=== PATIENT | male | born 1930 | race Caucasian/White ===

== ENCOUNTER 2019-01-18 08:34 | Emergency (ER) | payer MEDICARE ==
[~2019-01-18] VITALS: Ht 167.6 cm; Wt 72.6 kg
[2019-01-18 08:38] VITALS: BP_SYST 147
--- NOTE | 2019-01-18 08:40 | NUR ---
Patient to ER bed 3 to gown for evaluation. Side rails up. Report given to Latha OSHEA.
--- NOTE | 2019-01-18 08:50 | NUR ---
Patient arrived via [facility] from home, patient alert and oriented, lives with Gloria. Patient c/c of abdominal pain and no BM for 4 days. Patient states pain began upon waking this morning approximately 0730. Patient states he was discharged from [facility] last night. He states while he was admitted to [place] he had a G-tube placed. Patient has 16fr cordero catheter, clamped, to LUQ of abdomen. Dressing is dry and intact. Patient has 3 incisions with steri strip closures to RLQ, umbilicus, and at g-tube site. No active bleeding, drainage, warmth, or redness indicating infection. Patient states he had his formula for the first time through the tube last night, tolerated well. The G-tube was placed due to difficulty swallowing and tolerating oral intake. Patient has history of esophageal cancer. Will continue to follow up and monitor.
--- NOTE | 2019-01-18 08:55 | NUR ---
ER at bedside examining patient.
[2019-01-18] MEDS ORDERED: NACL 0.9% 1,000 ML IV ONE (08:59)
--- NOTE | 2019-01-18 09:22 | NUR ---
Patient blood drawn from PICC line, dual lumen. x2 lines flushed with saline and blood returned noted.
--- NOTE | 2019-01-18 09:40 | NUR ---
Patient returned from CT scan, patient placed on monitor. No compliants of pain at this time.
[2019-01-18 09:43] LABS: HEMATOCRIT 33.5 % (36-54); HEMOGLOBIN 11.2 g/dL (14.0-18.0); MEAN CORPUSCULAR HEMOGLOBIN 33 pg (27-31); MEAN CORPUSCULAR HGB CONC 34 % (32-36); MEAN CORPUSCULAR VOLUME 97 fL (79.0-98.0); PLATELET COUNT (AUTO) 83 K/uL (130-430); RED BLOOD CELL COUNT(AUTO) 3.45 MIL/uL (4.2-6.2); RED CELL DISTRIBUTION WIDTH 19.4 % (9.0-15.0); WHITE BLOOD COUNT (AUTO) 6.7 K/uL (4.8-10.8)
[2019-01-18 09:50] LABS: INR 1.2 (0.80-1.20)
[2019-01-18 10:06] LABS: ANION GAP 9 (5-15); CALCIUM 8.7 mg/dL (8.4-11.0); CHLORIDE 100 mmol/L (98-107); CREATININE 0.81 mg/dL (0.55-1.30); GLUCOSE 137 mg/dL (70-99); POTASSIUM 3.7 mmol/L (3.5-5.1); SODIUM SERUM 135 mmol/L (136-145); UREA NITROGEN, BLOOD 12 mg/dL (8-21)
[2019-01-18 10:12] LABS: ALANINE AMINOTRANSFERASE 15 U/L (12-78); ALBUMIN 2.2 g/dL (3.4-4.8); AMYLASE 24 U/L (0-100); ASPARTATE AMINOTRANSFERASE 29 U/L (10-37); LIPASE 124 U/L (73-393)
[2019-01-18 10:29] LABS: BASOPHILS % (MANUAL) 0 % (0-2); EOSINOPHILS % (MANUAL) 2 % (0-7); LYMPHOCYTES % (MANUAL) 20 % (20-46); MONOCYTES % (MANUAL) 10 % (0-11)
--- NOTE | 2019-01-18 10:31 | NUR ---
Feng Overton called [facility], surgery gastrotomy, laparoscopic g-tube placement. Confirmed discharge yesterday from their facility.
--- NOTE | 2019-01-18 11:12 | NUR ---
DR. VARELA, [facility] DOC, PAGED BACK TO SPEAK WITH DR. PIZANO REGARDING PT STATUS.
--- NOTE | 2019-01-18 11:38 | NUR ---
at bedside, aware of pending transfer to [facility]. Consent signed. Patient was up to bedside commode with weak transfer. Returned to bed 2 person assist. Patient denies abdominal pain, and unable to have bowel movement. Urine specimen collected.
[2019-01-18 11:46] LABS: BILIRUBIN,URINE NEGATIVE (NEGATIVE); BLOOD, URINE NEGATIVE (NEGATIVE); CLARITY/URINE CLEAR (CLEAR); COLOR,URINE YELLOW (YELLOW); GLUCOSE,URINE TRACE (NEGATIVE); KETONES,URINE NEGATIVE (NEGATIVE); LEUKOCYTE ESTERASE ,URINE NEGATIVE (NEGATIVE); NITRITE, URINE NEGATIVE (NEGATIVE); PROTEIN URINE NEGATIVE (NEGATIVE)
--- NOTE | 2019-01-18 12:20 | NUR ---
TRANSFER INFO [facility] ACCEPTING: DR. LOWE REPORT: BLS ETA 1300 SPOKE TO PATSY.
--- NOTE | 2019-01-18 13:03 | NUR ---
Patient to be transferred to [facility]. Is being transferred due to higher level of care. Receiving facility has accepting physician and available space. ER physician has signed transfer form. Patient or responsible libertarian has agreed to transfer and signed form. Patient belongings inventoried and will be sent with patient. Copy of nursing notes, lab reports, EKG, Physicians Orders and X-rays to be sent with patient. Report called to at receiving facility. Receiving physician is Dr. Overton. [facility] has been called for transfer. Arrived for transfer.
[2019-01-18 13:04] VITALS: BP_SYST 137
--- NOTE | 2019-01-18 13:04 | NUR ---
Report given to Joe at [facility].
--- NOTE | 2019-01-18 13:15 | NUR ---
CALLING PT TO UPDATE ON PT TRANSPORT IS HERE TO TAKE PT TO [facility].
--- NOTE | 2019-01-18 13:35 | NUR ---
Patients called, aware patient has left our ED and is being transported to [facility].
== END 2019-01-18 13:03 | disposition short-term general hospital (02) ==
LOC: SED 08:34
DX: K59.00 Constipation, unspecified (principal); D69.6 Thrombocytopenia, unspecified; R79.89 Other specified abnormal findings of blood chemistry; I11.0 Hypertensive heart disease with heart failure; I50.9 Heart failure, unspecified; Z85.01 Personal history of malignant neoplasm of esophagus
CPT/HCPCS: 36415; 71045; 80053; 81003; 82150-TC; 82550-TC; 83605; 83690-TC; 83880; 84484; 85007; 85027; 85610-TC; 85730-TC; 87040-TC; 93005; 99285; J7030

== ENCOUNTER 2020-05-23 18:01 | Emergency (ER) | payer MEDICARE ==
[~2020-05-23] VITALS: Ht 167.6 cm; Wt 52.2 kg
--- NOTE | 2020-05-23 18:13 | NUR ---
Placed in room 07 . Placed on word processing machine operator, blood pressure machine and pulse oximeter. To gown for exam. Side rails up.
[2020-05-23 18:15] VITALS: BP_SYST 101
--- NOTE | 2020-05-23 18:20 | NUR ---
PT HALLIE CALLED 911 SINCE PT WAS EXPERIENCING INCREASED WEAKNESS TODAY AND CAUGHT HIM WHIEL HE WAS ROLLING OUT OF BED. PT. DID NOT FALL. PT DENIES CHEST PAIN/SOB/HEAD/NECK/BACK PAIN. PT. HAS ALLERGY TO MORPHINE. PT. HAS A HISTORY OF ESOPHAGEAL CANCER. PT IS CURRENTLY BRADYCARDIC AND SLIGHTLY HYPOTENSIVE MD BREWER AT BEDSIDE EVALUATING PT.
[2020-05-23] MEDS ORDERED: ATROPINE SULFATE 1 MG/10 ML SYRINGE IVP ONE (18:24)
--- NOTE | 2020-05-23 18:25 | NUR ---
1 AMP ATROPINE GIVEN PER ER MD BREWER FOR BRADYCARDIA ED MD BREWER AT BEDSIDE WILL CONITNUE TO MONITOR
[2020-05-23] MEDS: NS 500 ML IV ONE (18:36)
--- NOTE | 2020-05-23 18:50 | NUR ---
LAB AT BEDSIDE DRAWING BLOOD
--- NOTE | 2020-05-23 18:51 | NUR ---
BEDSIDE COVID SWAB PERFORMED PT TOLERATED WELL
[2020-05-23 19:12] LABS: EOSINOPHILS % (AUTO) 1.2 % (0.0-4.0); HEMOGLOBIN 11.7 g/dL (14.0-18.0); LYMPHOCYTES # (AUTO) 0.5 K/uL (1.0-5.5); LYMPHOCYTES % (AUTO) 14.3 % (20.5-51.5); MEAN CORPUSCULAR HEMOGLOBIN 32 pg (27-31); MEAN CORPUSCULAR HGB CONC 34 % (32-36); MEAN CORPUSCULAR VOLUME 96 fL (79.0-98.0); MONOCYTES # (AUTO) 0.4 K/uL (0.0-1.0); MONOCYTES % (AUTO) 9.7 % (1.7-9.3); PLATELET COUNT (AUTO) 113 K/uL (130-430); RED BLOOD CELL COUNT(AUTO) 3.66 MIL/uL (4.2-6.2); RED CELL DISTRIBUTION WIDTH 14.4 % (9.0-15.0); WHITE BLOOD COUNT (AUTO) 3.7 K/uL (4.8-10.8)
--- NOTE | 2020-05-23 19:20 | NUR ---
BEDSIDE COVID PCR TEST PERFORMED ADN SENT TO LAB PT TOLERATED WELL
--- NOTE | 2020-05-23 19:21 | NUR ---
BRENDA TO ASSUME CARE, CALM, ALERT, RESP UNLABORED, NO DISTRESS. OFF TO CT
--- NOTE | 2020-05-23 19:36 | NUR ---
back from ct. tolerated well w/o incident
[2020-05-23 19:55] LABS: ANION GAP 6 (5-15); CALCIUM 8.4 mg/dL (8.4-11.0); CHLORIDE 101 mmol/L (98-107); CREATININE 1.06 mg/dL (0.55-1.30); GLUCOSE 95 mg/dL (70-99); SODIUM SERUM 137 mmol/L (136-145); UREA NITROGEN, BLOOD 17 mg/dL (8-21)
[2020-05-23 20:03] LABS: ALANINE AMINOTRANSFERASE 30 U/L (12-78); ALBUMIN 2.7 g/dL (3.4-4.8); ASPARTATE AMINOTRANSFERASE 25 U/L (10-37); TOTAL BILIRUBIN 0.3 mg/dL (0.0-1.0)
[2020-05-23 20:04] LABS: INR 1.1 (0.80-1.20); PROTHROMBIN TIME 11.4 SECS (9.5-12.5)
[2020-05-23] MEDS ORDERED: cefTRIAXone 1 GM VIAL ONE (20:15)
[2020-05-23] MEDS: cefTRIAXone 1 GM in D5W 50 ML IV ONE (20:16)
[2020-05-23 20:17] LABS: NEUTROPHILS % (AUTO) 74.5 % (40.0-70.0)
[2020-05-23 20:18] LABS: BASOPHILS % (AUTO) 0.3 % (0.0-2.0); NEUTROPHILS # (AUTO) 2.8 K/uL (1.8-7.7)
[2020-05-23 22:41] VITALS: BP_SYST 109
--- NOTE | 2020-05-23 22:41 | NUR ---
Patient given written and verbal discharge instructions and verbalizes understanding. ER MD discussed with patient the results and treatment provided. Patient in stable condition. ID arm band removed. IV catheter removed intact and dressing applied, no active bleeding. Patient educated on pain management and to follow up with PMD. Pain Scale . Opportunity for questions provided and answered. Medication side effect fact sheet provided.
--- NOTE | 2020-05-23 22:43 | NUR ---
ACI TO [facility], PLACED IN VEHICLE.
[2020-05-23 22:57] LABS: BILIRUBIN,URINE NEGATIVE (NEGATIVE); BLOOD, URINE NEGATIVE (NEGATIVE); CLARITY/URINE CLEAR (CLEAR); COLOR,URINE YELLOW (YELLOW); GLUCOSE,URINE NEGATIVE (NEGATIVE); KETONES,URINE TRACE (NEGATIVE); LEUKOCYTE ESTERASE ,URINE NEGATIVE (NEGATIVE); NITRITE, URINE NEGATIVE (NEGATIVE); PROTEIN URINE NEGATIVE (NEGATIVE); UROBILINOGEN,URINE 0.2 (0.2-1.0)
== END 2020-05-23 22:41 | disposition home or self-care (01) ==
LOC: SED 18:01
DX: R53.1 Weakness (principal); Z85.01 Personal history of malignant neoplasm of esophagus; Z20.828 Contact with and (suspected) exposure to other viral communicable diseases
CPT/HCPCS: 36415; 71045; 74176; 76376; 80053; 81003; 83605; 84484; 85025; 85610; 85730; 87040; 87086; 87426; 93005; 96365; 99285; J0461; J0696; J7040; U0003

== ENCOUNTER 2020-05-25 10:48 | Emergency (ER) | payer MEDICARE ==
[~2020-05-25] VITALS: Ht 167.6 cm; Wt 59.0 kg
--- NOTE | 2020-05-25 10:48 | NUR ---
BROUGHT IN BY [facility] AND PLACED IN HALLWAY BED, REPORT GIVEN TO IRINA
[2020-05-25 10:50] VITALS: BP_SYST 138
--- NOTE | 2020-05-25 10:50 | NUR ---
Pt brought by Rolf DICK&Ox4 ,pt states he fell few days ago and wsa seen in the ERm, today pt c/o pain on R knee radiating to R leg, skin pin and warm, cap refill <3, VSS.
--- NOTE | 2020-05-25 10:55 | NUR ---
Note flynn in EDM - 05/25/20 at 1117 by [email or web address] Pt brought by self, A&Ox4, pt presents to ER with generalized weakness, pt respirations even and unlabored, cap refill <3. VSS, afebrile, denies SOB or other symptoms .
--- NOTE | 2020-05-25 11:00 | NUR ---
Dr Dela Cruz W evaluating patient at bedside
[2020-05-25 12:12] LABS: BASOPHILS % (AUTO) 0.2 % (0.0-2.0); EOSINOPHILS % (AUTO) 0.3 % (0.0-4.0); HEMATOCRIT 36.9 % (36-54); HEMOGLOBIN 12.4 g/dL (14.0-18.0); LYMPHOCYTES # (AUTO) 0.4 K/uL (1.0-5.5); LYMPHOCYTES % (AUTO) 5.8 % (20.5-51.5); MEAN CORPUSCULAR HEMOGLOBIN 32 pg (27-31); MEAN CORPUSCULAR HGB CONC 34 % (32-36); MEAN CORPUSCULAR VOLUME 96 fL (79.0-98.0); MONOCYTES # (AUTO) 0.7 K/uL (0.0-1.0); MONOCYTES % (AUTO) 10.2 % (1.7-9.3); NEUTROPHILS # (AUTO) 5.4 K/uL (1.8-7.7); NEUTROPHILS % (AUTO) 83.5 % (40.0-70.0); PLATELET COUNT (AUTO) 117 K/uL (130-430); RED BLOOD CELL COUNT(AUTO) 3.83 MIL/uL (4.2-6.2); RED CELL DISTRIBUTION WIDTH 14.6 % (9.0-15.0); WHITE BLOOD COUNT (AUTO) 6.5 K/uL (4.8-10.8)
[2020-05-25 12:41] LABS: ALANINE AMINOTRANSFERASE 37 U/L (12-78); ALBUMIN 2.6 g/dL (3.4-4.8); ANION GAP 8 (5-15); ASPARTATE AMINOTRANSFERASE 35 U/L (10-37); CALCIUM 8.2 mg/dL (8.4-11.0); CHLORIDE 96 mmol/L (98-107); CREATININE 0.93 mg/dL (0.55-1.30); GLUCOSE 174 mg/dL (70-99); SODIUM SERUM 132 mmol/L (136-145); TOTAL BILIRUBIN 0.4 mg/dL (0.0-1.0); UREA NITROGEN, BLOOD 12 mg/dL (8-21); URIC ACID 4.9 mg/dL (2.4-7.0)
[2020-05-25 12:43] LABS: INR 1.1 (0.80-1.20); PROTHROMBIN TIME 11.4 SECS (9.5-12.5)
[2020-05-25 12:53] LABS: ERYTHROCYTE SEDIMENTATION RATE 69 MM/HR (0-15)
[2020-05-25 13:25] LABS: C-REACTIVE PROTEIN QUANT 11.2 mg/dL (0-0.5)
--- NOTE | 2020-05-25 14:29 | NUR ---
Patient given written and verbal discharge instructions and verbalizes understanding. ER MD discussed with patient the results and treatment provided. Patient in stable condition. ID arm band removed. Rx of [place] given. Patient educated on pain management and to follow up with PMD. Pain Scale . Opportunity for questions provided and answered. Medication side effect fact sheet provided.
[2020-05-25 14:30] VITALS: BP_SYST 138
== END 2020-05-25 14:29 | disposition home or self-care (01) ==
LOC: SED 10:48
DX: S89.81XA Other specified injuries of right lower leg, initial encounter (principal); Z88.6 Allergy status to analgesic agent; Z85.01 Personal history of malignant neoplasm of esophagus
CPT/HCPCS: 36415; 73560-TC; 73590-TC; 80053; 84550-TC; 85025; 85610-TC; 85651-TC; 85730-TC; 86140; 99284